=== PATIENT | female | born 1990 ===

== ENCOUNTER 2020-03-31 18:28 | Emergency (ER) | payer OTHER ==
[~2020-03-31] VITALS: Ht 167.6 cm; Wt 96.2 kg
[2020-03-31 18:39] VITALS: BP 133/93
--- NOTE | 2020-03-31 18:41 | NUR ---
ED Nurse Note: pt walked in from home c/o "chest pains" x 2-3 weeks. reports that when she lies down to sleep at night, she wakes up because it feels like she cannot catch her breath. she had an EKG and labwork done at an urgent care last week, stating that the results were normal. pt describes the px as radiating to her backside and feeling like the L side of her thriosat is "inflamed."
--- NOTE | 2020-03-31 18:59 | Emergency Room Report ---
History of Present Illness General Chief Complaint: General Complaint Source: Patient Present Illness HPI Disclaimer: Please note that this report is being documented using [employer] technology. This can lead to erroneous entry secondary to incorrect interpretation by the dictating instrument. HPI: 29-year-old female presents for evaluation of chest discomfort and shortness of breath. Symptoms have been ongoing for several weeks. The patient states she has intermittent and vague chest pressure sometimes pain all over the chest at different spots different times of the day. Sometimes with exertion sometimes at rest. Usually they come on at night while laying down to fall asleep. She states she will get up and have a few gasping breaths after which her symptoms resolved. Denies cough, fever, vomiting, diarrhea, lightheadedness, palpitations. States she had a similar presentation years ago and diagnosed with mild anxiety. She has had panic attacks in the past but states this feels somewhat different. Her PMD is currently investigating along with cardiology. She has had broad blood work including thyroid studies and is scheduled to see a room service runner again in 2 weeks for Holter monitor and echo. She currently does not eyeing any discomfort at this time. PMH: Denies PSH: Denies Allergies: Denies Social Hx: Denies Allergies: Coded Allergies: No Known Allergies (Unverified , 03/31/20) COVID-19 Screening Contact w/high risk pt: No Recent Travel to affected area: No Experienced COVID-19 symptoms?: No COVID-19 Testing performed [employer] SPECIALIST: No Nursing Documentation-PMH Past Medical History: No Stated History Review of Systems All Other Systems: negative except mentioned in HPI Physical Exam Vital Signs Date Time Temp Pulse Resp B/P (MAP) Pulse Ox O2 Delivery O2 Flow Rate FiO2 03/31/20 18:35 98.1 72 19 133/93 (106) 99 Room Air General: Awake and alert, no acute distress HEENT: NC/AT. EOMI. Cardiovascular: RRR. S1 and S2 normal. No murmur appreciated Resp: Normal work of breathing. No cough, wheezing or crackles appreciated Skin: Intact. No abrasions, laceration or rash over the exposed skin MSK: Normal tone and bulk. Moving all extremities. No obvious deformity. Neuro: Awake and alert. Mentating appropriately. Medical Decision Making Diagnostic Impression: Primary Impression: Dyspnea ER Course 29-year-old female presents for evaluation of 2 weeks intermittent chest discomfort shortness of breath. Differential includes is not limited to anxiety , GERD, ACS, palpitations, arrhythmia, bronchitis, pneumonia. Patient follows up closely with PMD and cardiology who are investigating this symptoms. Currently, she has no complaints and lives with stable vital signs. EKG is nonischemic and chest x-ray was obtained but does not show any signs of infectious process, fluid overload, structural abnormality. Given the patient's symptoms, there may be a component of acid reflux disorder and I will prescribe pepsid for her. She has good follow up with her room service runner and PMD and scheduled for Holter monitor and echo in 2 weeks. She is stable for outpatient follow up and we discussed return precautions. She understands and agrees with this treatment plan. EKG Diagnostic Results EKG Time: 19:12 Rate: normal Rhythm: NSR ST Segments: no acute changes Other Impression Sinus rhythm, normal axis, normal intervals, no ST segment changes. Rhythm Strip Diag. Results Rhythm Strip Time: 19:12 EP Interpretation: yes Rate: 60s Rhythm: NSR, no PVC's, no ectopy Chest X-Ray Diagnostic Results Chest X-Ray Diagnostic Results : Chest X-Ray Ordered: Yes # of Views/Limited/Complete: 1 View Indication: Chest Pain Interpretation: no consolidation, no effusion, no pneumothorax, no acute cardiopulmonary disease Impression: No acute disease Electronically Signed by: Electronically signed by Dr. Tr Way Last Vital Signs Date Time Temp Pulse Resp B/P (MAP) Pulse Ox O2 Delivery O2 Flow Rate FiO2 03/31/20 18:39 72 19 Room Air 03/31/20 18:39 98.1 133/93 99 Disposition: HOME, SELF-CARE Condition: Stable Scripts Famotidine* (Pepcid 20mg tablet*) 20 Mg Tablet 20 MG ORAL DAILY, #30 TAB 0 Refills Prov: Tr Way MD 03/31/20 Referrals: NON PHYSICIAN (PCP) Tr Way MD March 31, 2020 18:59
[2020-03-31] MEDS ORDERED: FAMOTIDINE20 MG ORAL (19:11)
--- NOTE | 2020-03-31 19:12 | Diagnostic Imaging Report ---
EXAM: XR Chest, 1 View CLINICAL HISTORY: SOB TECHNIQUE: Frontal view of the chest. COMPARISON: No relevant prior studies available. FINDINGS: Lungs: Unremarkable. No consolidation. Pleural space: Unremarkable. No pneumothorax. Heart: Unremarkable. No cardiomegaly. Mediastinum: Unremarkable. Bones/joints: Unremarkable. IMPRESSION: 1. No acute cardiopulmonary disease. 2. If there is continued concern recommend frontal and lateral chest radiographs or CT.
[2020-03-31 19:27] VITALS: BP 133/93
--- NOTE | 2020-03-31 19:27 | NUR ---
ER DISCHARGE NOTE: Patient is cleared to be discharged per ERMD, pt is aox4, on room air, with stable vital signs. pt was given dc and prescription instructions, pt was able to verbalize understanding, pt id band removed without complications. pt is able to ambulate with steady gait. pt took all belongings.
== END 2020-03-31 19:27 | disposition home or self-care (01) ==
LOC: EMR 18:55
DX: R06.00 Dyspnea, unspecified (principal); R07.9 Chest pain, unspecified; F41.9 Anxiety disorder, unspecified
CPT/HCPCS: 71045; 93005; Z7502; 99283